=== PATIENT | female | born 1980 | race Caucasian/White ===

== ENCOUNTER 2018-11-05 11:00 | Observation (INO) ==
[2018-11-05 12:05] LABS: Basophils % 0.5 % (0.0-0.8); Eosinophils # 0.2 10*3/uL (0.0-0.87); Eosinophils % 2.9 % (0.00-10.9); Hematocrit 33.1 VOL% (35.7-47.0); Hemoglobin 10.6 GM/DL (12.0-16.0); Immature Granulocytes % 0.3 %; Immature Granulocytes Absolute 0.02 #; Lymphocytes # 3.1 10*3/uL (1.4-4.0); Lymphocytes % 41.3 % (21.3-54.2); Mean Corpuscular Volume 87.6 FL (87-102); Mean Platelet Volume 9.5 FL (9.6-12.0); Monocytes % 10.8 % (1.7-12.7); Neutrophils % 44.2 % (38.7-73.9); Platelet Count 464 T/CUMM (130-400); Red Blood Count 3.78 MC/CUMM (3.8-5.5); Red Cell Distribution Width 17.8 % (9.3-17.3); White Blood Count 7.6 T/CUMM (4-12)
[2018-11-05 12:16] LABS: INR 0.9; PT Patient Result 9.8 SECS; Partial Thromboplastin Time 25.4 SECS (0-40)
[2018-11-05 12:18] LABS: Apearance,Urine Slightly Hazy (Clear); Bilirubin,Urine Negative (Negative); Blood, Urine Negative (Negative); Glucose,Urine (UA) Negative (Negative); Ketones,Urine Negative (Negative); Nitrite,Urine Negative (Negative); Protein,Urine Negative; Urine Color Yellow (Yellow); Urine Urobilinogen < 2.0 EU/DL (0.2-1.0)
[2018-11-05 12:31] LABS: RBC,Urine Rare /HPF (0-4); Squamous Epithelial Cell,Urine Moderate /HPF (0-10); WBC,Urine Rare /HPF (0-6)
[2018-11-05 12:32] LABS: Bacteria,Urine Moderate /HPF (Few)
[2018-11-05 12:33] LABS: Troponin I < 0.015 NG/ML (0.00-0.045)
[2018-11-05 12:35] LABS: Alanine Aminotransferase 17 U/L (13-56); Albumin 3.5 G/DL (3.4-5.0); Alkaline Phosphatase 58 U/L (45-117); Aspartate Amino Transferase 15 U/L (0-37); Bilirubin,Total < 0.39 MG/DL (0.2-1.0); Blood Urea Nitrogen 9 MG/DL (7-18); Calcium 8.9 MG/DL (8.5-10.1); Glucose 95 MG/DL (74-106); Total Protein 6.9 G/DL (6.4-8.3)
[2018-11-05 14:26] LABS: Barbiturates Screen,Urine Negative (Negative); Benzodiazepines Screen,Urine Positive (Negative); Cannabinoid Screen,Urine Positive (Negative); Opiate Screen,Urine Negative (Negative); Phencyclidine Screen,Urine Negative (Negative)
[2018-11-05] MEDS ORDERED: SODIUM CHLORIDE 0.9% 500 ML IV STA (14:44)
[2018-11-05] MEDS ORDERED: ACETAMINOPHEN 325 MG TABLET PO PRN (15:00)
[2018-11-05] MEDS ORDERED: ONDANSETRON 4 MG/2 ML VIAL IV PRN (15:00)
[2018-11-05] MEDS ORDERED: ALUM/MAG/SIMETH/LIDO VISC 1:1 30 ML BOTTLE PO PRN (15:08)
[2018-11-05] MEDS ORDERED: ENOXAPARIN 100 MG/ML SYRINGE SUBCUT SCH (17:00)
[2018-11-05] MEDS: SODIUM CHLORIDE 0.9% 1,000 ML IV SCH (17:07)
[2018-11-05] MEDS ORDERED: SIMVASTATIN 20 MG TABLET PO SCH (21:00)
[2018-11-05] MEDS: CARVEDILOL 6.25 MG TABLET PO SCH (21:27)
[2018-11-05] MEDS: LISINOPRIL 5 MG TABLET PO SCH (21:27)
[2018-11-06] MEDS: SODIUM CHLORIDE 0.9% 1,000 ML IV SCH (03:10)
[2018-11-06 04:31] LABS: Basophils % 0.6 % (0.0-0.8); Eosinophils # 0.2 10*3/uL (0.0-0.87); Hematocrit 29.9 VOL% (35.7-47.0); Hemoglobin 9.6 GM/DL (12.0-16.0); Immature Granulocytes % 0.3 %; Immature Granulocytes Absolute 0.02 #; Lymphocytes # 3.8 10*3/uL (1.4-4.0); Lymphocytes % 52.8 % (21.3-54.2); Mean Corpuscular HGB Conc 32.1 GM/DL (32-36); Mean Corpuscular Volume 86.9 FL (87-102); Mean Platelet Volume 10.2 FL (9.6-12.0); Monocytes % 9.5 % (1.7-12.7); Neutrophils % 33.8 % (38.7-73.9); Platelet Count 445 T/CUMM (130-400); Red Blood Count 3.44 MC/CUMM (3.8-5.5); Red Cell Distribution Width 17.8 % (9.3-17.3); White Blood Count 7.2 T/CUMM (4-12)
[2018-11-06 04:58] LABS: Calcium 8.4 MG/DL (8.5-10.1); Osmolality,Calculated 272.7 MOS/KG (273-304); Risk Ratio 2.95; Thyroid Stimulating Hormone 1.75 uIU/ml (0.358-3.74); VLDL CHOLESTEROL 33.4 MG/DL
[2018-11-06 05:12] LABS: Eosinophils 5 % (0-10); Lymphocytes 53 % (20-55); Platelet Estimate Normal; Polychromasia Few; Segmented Neutrophils 34 % (50-85); Total Cells Counted 100
[2018-11-06] MEDS ORDERED: PANTOPRAZOLE 40 MG TABLET PO SCH (09:00)
[2018-11-06] MEDS ORDERED: Darunavir Ethanolate [Prezista] 800 MG PO SCH (09:00)
[2018-11-06] MEDS ORDERED: ELVITEG COB EMTRI TENOF ALAFEN PO SCH (09:00)
[2018-11-06] MEDS ORDERED: CLOPIDOGREL 75 MG TABLET PO SCH (09:00)
[2018-11-06] MEDS ORDERED: REGADENOSON 0.4 MG/5 ML SYRINGE IV ONE (10:54)
[2018-11-06] MEDS: LISINOPRIL 5 MG TABLET PO SCH (12:00)
[2018-11-06] MEDS: CARVEDILOL 6.25 MG TABLET PO SCH (12:00)
[2018-11-06 15:25] VITALS: BP 81/50
[2018-11-07] MEDS ORDERED: ASPIRIN EC 81 MG TABLET PO SCH (09:00)
== END 2018-11-06 17:48 | disposition home or self-care (01) ==
LOC: N.ED 11:00 → N.EDINP 11:00 → N.TELES 16:25
PROVIDERS: ADMIT Internal Medicine; ATTEND Internal Medicine

== ENCOUNTER 2019-10-11 10:43 | Inpatient (IN) ==
[2019-10-11 11:21] LABS: Basophils % 0.5 % (0.0-0.8); Eosinophils # 0.2 10*3/uL (0.0-0.87); Eosinophils % 1.9 % (0.00-10.9); Hematocrit 26.7 VOL% (35.7-47.0); Hemoglobin 8.6 GM/DL (12.0-16.0); Immature Granulocytes % 0.4 %; Immature Granulocytes Absolute 0.03 #; Lymphocytes # 2.7 10*3/uL (1.4-4.0); Lymphocytes % 32.5 % (21.3-54.2); Mean Corpuscular HGB Conc 32.2 GM/DL (32-36); Mean Corpuscular Volume 86.7 FL (87-102); Mean Platelet Volume 9.6 FL (9.6-12.0); Monocytes % 9.7 % (1.7-12.7); NRBC # 0.04 10*3/uL; Platelet Count 326 T/CUMM (130-400); Red Blood Count 3.08 MC/CUMM (3.8-5.5); Red Cell Distribution Width 16.9 % (9.3-17.3); White Blood Count 8.4 T/CUMM (4-12)
[2019-10-11] MEDS ORDERED: ACETAMINOPHEN 500 MG TABLET PO STA (11:40)
[2019-10-11 11:45] LABS: Albumin 3.2 G/DL (3.4-5.0); Bilirubin,Total 0.5 MG/DL (0.2-1.0); Calcium 8.4 MG/DL (8.5-10.1); Osmolality,Calculated 276.5 MOS/KG (273-304); Total Protein 6.8 G/DL (6.4-8.3)
[2019-10-11] MEDS ORDERED: cefTRIAXone 1,000 MG in SODIUM CHLORIDE 0.9% 100 ML IV STA (12:12)
[2019-10-11 12:17] LABS: PT Patient Result 10.5 SECS (9.8-11.9)
[2019-10-11 12:23] LABS: Ferritin 23.9 ng/ml (8-252)
[2019-10-11] MEDS ORDERED: GLUCAGON 1 MG VIAL IM PRN (14:42)
[2019-10-11] MEDS ORDERED: DEXTROSE 10% 250 ML BAG IV PRN (14:42)
[2019-10-11] MEDS ORDERED: ONDANSETRON 4 MG/2 ML VIAL IV PRN (14:42)
[2019-10-11] MEDS ORDERED: AZITHROMYCIN INJ 500 MG in SODIUM CHLORIDE 0.9% 250 ML IV SCH (15:30)
[2019-10-11] MEDS ORDERED: FUROSEMIDE 40 MG/4 ML VIAL IV ONE (15:56)
[2019-10-11] MEDS ORDERED: ARIPIPRAZOLE 400 MG IM SCH (20:30)
[2019-10-11] MEDS ORDERED: HYDROXYCHLOROQUINE 200 MG TABLET PO SCH (21:00)
[2019-10-11] MEDS ORDERED: traZODone 50 MG TABLET PO SCH (21:00)
[2019-10-11] MEDS ORDERED: SIMVASTATIN 20 MG TABLET PO SCH (21:00)
[2019-10-11] MEDS: ACETAMINOPHEN 325 MG TABLET PO PRN (21:40)
[2019-10-11] MEDS: carvediloL 6.25 MG TABLET PO SCH (22:46)
[2019-10-11] MEDS: GABAPENTIN 600 MG TABLET PO SCH (22:46)
[2019-10-12 06:32] LABS: Basophils % 0.3 % (0.0-0.8); Eosinophils # 0.1 10*3/uL (0.0-0.87); Eosinophils % 0.9 % (0.00-10.9); Hematocrit 25.5 VOL% (35.7-47.0); Hemoglobin 8.2 GM/DL (12.0-16.0); Immature Granulocytes % 0.3 %; Immature Granulocytes Absolute 0.04 #; Lymphocytes # 3.5 10*3/uL (1.4-4.0); Lymphocytes % 28.7 % (21.3-54.2); Mean Corpuscular HGB Conc 32.2 GM/DL (32-36); Mean Corpuscular Volume 87.9 FL (87-102); Mean Platelet Volume 9.9 FL (9.6-12.0); Monocytes % 6.5 % (1.7-12.7); NRBC # 0.05 10*3/uL; Neutrophils % 63.3 % (38.7-73.9); Platelet Count 320 T/CUMM (130-400); Red Cell Distribution Width 16.8 % (9.3-17.3); White Blood Count 12.1 T/CUMM (4-12)
[2019-10-12 06:56] LABS: Albumin 2.9 G/DL (3.4-5.0); Bilirubin,Total 0.5 MG/DL (0.2-1.0); Calcium 8.5 MG/DL (8.5-10.1); Osmolality,Calculated 274.7 MOS/KG (273-304); Risk Ratio 2.62; Thyroid Stimulating Hormone 2.78 uIU/ml (0.358-3.74); VLDL CHOLESTEROL 14.4 MG/DL
[2019-10-12] MEDS ORDERED: MAGNESIUM SULF RIDER 2 GM in PREMIX 1 EACH IV PRN (07:52)
[2019-10-12] MEDS ORDERED: MAGNESIUM SULF RIDER 4 GM in PREMIX 1 EACH IV PRN (07:52)
[2019-10-12] MEDS ORDERED: ELVITEG COB EMTRI TENOF ALAFEN PO SCH (09:00)
[2019-10-12] MEDS ORDERED: Darunavir Ethanolate [Prezista] 800 MG PO SCH (09:00)
[2019-10-12] MEDS: carvediloL 6.25 MG TABLET PO SCH ×2 (09:13→16:11)
[2019-10-12] MEDS: ENOXAPARIN 40 MG/0.4 ML SYRINGE SUBCUT SCH (09:13)
[2019-10-12] MEDS: CLOPIDOGREL 75 MG TABLET PO SCH (09:13)
[2019-10-12] MEDS: NICOTINE 21 MG/24 HR PATCH TRANSDERM SCH (09:13)
[2019-10-12] MEDS: PANTOPRAZOLE 40 MG TABLET PO SCH (09:14)
[2019-10-12] MEDS: GABAPENTIN 600 MG TABLET PO SCH ×2 (09:14→14:28)
[2019-10-12] MEDS: cefTRIAXone 1,000 MG in SYRINGE 1 EACH IV SCH (09:31)
[2019-10-12 11:02] LABS: Barbiturates Screen,Urine Negative (Negative); Benzodiazepines Screen,Urine Positive (Negative); Cannabinoid Screen,Urine Positive (Negative); Opiate Screen,Urine Negative (Negative); Phencyclidine Screen,Urine Negative (Negative)
[2019-10-12] MEDS: ASPIRIN EC 81 MG TABLET PO SCH (14:28)
[2019-10-12] MEDS: FUROSEMIDE 40 MG/4 ML VIAL IV SCH (16:10)
[2019-10-12] MEDS ORDERED: HYDROXYCHLOROQUINE 200 MG TABLET PO SCH (21:00)
[2019-10-12] MEDS: AZITHROMYCIN 250 MG TABLET PO SCH (21:07)
[2019-10-12] MEDS: risperiDONE 1 MG TABLET PO SCH (21:12)
[2019-10-12] MEDS: PRAVASTATIN 20 MG TABLET PO SCH (21:12)
[2019-10-12] MEDS: lisinopriL 5 MG TABLET PO SCH (21:12)
[2019-10-12] MEDS: AMANTADINE 100 MG CAPSULE PO SCH (21:12)
[2019-10-12] MEDS: GABAPENTIN 400 MG CAPSULE PO SCH (21:12)
[2019-10-13 05:52] LABS: Basophils % 0.3 % (0.0-0.8); Eosinophils # 0.2 10*3/uL (0.0-0.87); Eosinophils % 1.3 % (0.00-10.9); Hematocrit 25.1 VOL% (35.7-47.0); Hemoglobin 7.9 GM/DL (12.0-16.0); Immature Granulocytes % 0.6 %; Immature Granulocytes Absolute 0.07 #; Lymphocytes # 3.1 10*3/uL (1.4-4.0); Lymphocytes % 25.7 % (21.3-54.2); Mean Corpuscular HGB Conc 31.5 GM/DL (32-36); Mean Corpuscular Volume 88.1 FL (87-102); Mean Platelet Volume 9.9 FL (9.6-12.0); Monocytes % 8.8 % (1.7-12.7); NRBC # 0.08 10*3/uL; Neutrophils % 63.3 % (38.7-73.9); Platelet Count 297 T/CUMM (130-400); Red Blood Count 2.85 MC/CUMM (3.8-5.5); Red Cell Distribution Width 16.9 % (9.3-17.3)
[2019-10-13 06:13] LABS: Albumin 2.8 G/DL (3.4-5.0); Calcium 8.5 MG/DL (8.5-10.1); Osmolality,Calculated 269.1 MOS/KG (273-304); Total Protein 7.2 G/DL (6.4-8.3)
[2019-10-13] MEDS: ENOXAPARIN 40 MG/0.4 ML SYRINGE SUBCUT SCH (09:36)
[2019-10-13] MEDS: cefTRIAXone 1,000 MG in SYRINGE 1 EACH IV SCH (09:36)
[2019-10-13] MEDS: risperiDONE 1 MG TABLET PO SCH ×2 (09:36→21:43)
[2019-10-13] MEDS: NICOTINE 21 MG/24 HR PATCH TRANSDERM SCH (09:36)
[2019-10-13] MEDS: lisinopriL 5 MG TABLET PO SCH ×2 (09:37→21:43)
[2019-10-13] MEDS: CLOPIDOGREL 75 MG TABLET PO SCH (09:38)
[2019-10-13] MEDS: GABAPENTIN 400 MG CAPSULE PO SCH ×3 (09:38→21:43)
[2019-10-13] MEDS: PANTOPRAZOLE 40 MG TABLET PO SCH (09:39)
[2019-10-13] MEDS: carvediloL 6.25 MG TABLET PO SCH ×2 (09:39→16:45)
[2019-10-13] MEDS: ISOSORBIDE MONONITRATE 30 MG TABLET PO SCH (09:39)
[2019-10-13] MEDS: ACETAMINOPHEN 325 MG TABLET PO PRN (09:41)
[2019-10-13] MEDS: ASPIRIN EC 81 MG TABLET PO SCH (09:41)
[2019-10-13] MEDS: FUROSEMIDE 40 MG/4 ML VIAL IV SCH (10:24)
[2019-10-13] MEDS: AMANTADINE 100 MG CAPSULE PO SCH ×2 (11:31→21:43)
[2019-10-13] MEDS: FUROSEMIDE 40 MG TABLET PO SCH (16:45)
[2019-10-13] MEDS: AZITHROMYCIN 250 MG TABLET PO SCH (18:02)
[2019-10-13] MEDS: PRAVASTATIN 20 MG TABLET PO SCH (21:43)
[2019-10-14 05:57] LABS: Basophils % 0.3 % (0.0-0.8); Eosinophils # 0.2 10*3/uL (0.0-0.87); Hematocrit 24.6 VOL% (35.7-47.0); Hemoglobin 7.9 GM/DL (12.0-16.0); Immature Granulocytes % 0.5 %; Immature Granulocytes Absolute 0.05 #; Lymphocytes # 3.1 10*3/uL (1.4-4.0); Lymphocytes % 28.4 % (21.3-54.2); Mean Corpuscular HGB Conc 32.1 GM/DL (32-36); Mean Corpuscular Volume 87.5 FL (87-102); Mean Platelet Volume 10.2 FL (9.6-12.0); Monocytes % 8.6 % (1.7-12.7); NRBC # 0.08 10*3/uL; Neutrophils % 60.2 % (38.7-73.9); Platelet Count 301 T/CUMM (130-400); Red Blood Count 2.81 MC/CUMM (3.8-5.5); Red Cell Distribution Width 16.7 % (9.3-17.3); White Blood Count 10.8 T/CUMM (4-12)
[2019-10-14] MEDS: ACETAMINOPHEN 325 MG TABLET PO PRN (05:59)
[2019-10-14 06:20] LABS: Albumin 2.8 G/DL (3.4-5.0); Bilirubin,Total 0.4 MG/DL (0.2-1.0); Calcium 8.5 MG/DL (8.5-10.1); Osmolality,Calculated 268.2 MOS/KG (273-304); Total Protein 7.4 G/DL (6.4-8.3)
[2019-10-14 06:22] LABS: Eosinophils 2 % (0-10); Hypochromasia 1+; Lymphocytes 28 % (20-55); Platelet Estimate Adequate; Segmented Neutrophils 55 % (50-85); Total Cells Counted 100
[2019-10-14] MEDS ORDERED: carvediloL 6.25 MG TABLET PO SCH (08:12)
[2019-10-14] MEDS: ISOSORBIDE MONONITRATE 30 MG TABLET PO SCH (10:53)
[2019-10-14] MEDS: GABAPENTIN 400 MG CAPSULE PO SCH ×2 (10:54→16:07)
[2019-10-14] MEDS: NICOTINE 21 MG/24 HR PATCH TRANSDERM SCH (10:55)
[2019-10-14] MEDS: lisinopriL 5 MG TABLET PO SCH (10:55)
[2019-10-14] MEDS: CLOPIDOGREL 75 MG TABLET PO SCH (10:55)
[2019-10-14] MEDS: cefTRIAXone 1,000 MG in SYRINGE 1 EACH IV SCH (10:55)
[2019-10-14] MEDS: AMANTADINE 100 MG CAPSULE PO SCH (10:55)
[2019-10-14] MEDS: risperiDONE 1 MG TABLET PO SCH (10:55)
[2019-10-14] MEDS: PANTOPRAZOLE 40 MG TABLET PO SCH (10:55)
[2019-10-14] MEDS: FUROSEMIDE 40 MG TABLET PO SCH (10:58)
[2019-10-14] MEDS: carvediloL 6.25 MG TABLET PO SCH (10:58)
[2019-10-14] MEDS: ENOXAPARIN 40 MG/0.4 ML SYRINGE SUBCUT SCH (13:30)
[2019-10-14 17:40] VITALS: BP 116/60
[2019-10-15] MEDS ORDERED: FUROSEMIDE 40 MG TABLET PO SCH (09:00)
== END 2019-10-14 17:30 | disposition home or self-care (01) | DRG 974 ==
LOC: EDUNIT# → EDBD → N.ED 10:43 → SUATTDRO 14:36 → N.EDINP 14:36 → N.2E 18:32
PROVIDERS: ADMIT Internal Medicine; ATTEND Family Medicine

== ENCOUNTER 2020-02-20 11:03 | Inpatient (IN) ==
[2020-02-20 12:26] LABS: Basophils % 0.5 % (0.0-0.8); Eosinophils # 0.3 10*3/uL (0.0-0.87); Eosinophils % 3.5 % (0.00-10.9); Hematocrit 24.2 VOL% (35.7-47.0); Hemoglobin 7.8 GM/DL (12.0-16.0); Immature Granulocytes % 0.3 %; Immature Granulocytes Absolute 0.02 #; Lymphocytes % 39.7 % (21.3-54.2); Mean Corpuscular HGB Conc 32.2 GM/DL (32-36); Mean Corpuscular Volume 102.5 FL (87-102); Mean Platelet Volume 10.9 FL (9.6-12.0); Monocytes % 10.6 % (1.7-12.7); Neutrophils % 45.4 % (38.7-73.9); Platelet Count 275 T/CUMM (130-400); Red Blood Count 2.36 MC/CUMM (3.8-5.5); Red Cell Distribution Width 17.2 % (9.3-17.3); White Blood Count 7.6 T/CUMM (4-12)
[2020-02-20 12:29] LABS: PT Patient Result 10.9 SECS (9.8-11.9)
[2020-02-20 12:33] LABS: Albumin 3.5 G/DL (3.4-5.0); Bilirubin,Total 0.6 MG/DL (0.2-1.0); Calcium 8.8 MG/DL (8.5-10.1); Osmolality,Calculated 285.4 MOS/KG (273-304); Total Protein 7.1 G/DL (6.4-8.3)
[2020-02-20 12:35] LABS: Ferritin 25.2 ng/ml (8-252)
[2020-02-20] MEDS ORDERED: FUROSEMIDE 100 MG/10 ML VIAL IV STA (12:37)
[2020-02-20] MEDS ORDERED: cefTRIAXone 1,000 MG in SODIUM CHLORIDE 0.9% 100 ML IV STA (12:37)
[2020-02-20 12:43] LABS: Anisocytosis 1+; Eosinophils 7 % (0-10); Lymphocytes 40 % (20-55); Macrocytosis 1+; Platelet Estimate Normal; Segmented Neutrophils 45 % (50-85); Total Cells Counted 100
[2020-02-20 13:42] LABS: Barbiturates Screen,Urine Negative (Negative); Benzodiazepines Screen,Urine Positive (Negative); Cannabinoid Screen,Urine Positive (Negative); Opiate Screen,Urine Negative (Negative); Phencyclidine Screen,Urine Negative (Negative)
[2020-02-20] MEDS ORDERED: CALCIUM CARBONATE CHEW 500 MG TABLET PO PRN (15:16)
[2020-02-20] MEDS ORDERED: ONDANSETRON 4 MG/2 ML VIAL IV PRN (15:16)
[2020-02-20] MEDS ORDERED: ALBUTEROL 2.5 MG/3 ML NEB RESP TX PRN (15:16)
[2020-02-20] MEDS: DOPamine 800 MG/250 ML PREMIX IV PRN ×2 (16:30→17:31)
[2020-02-20] MEDS: PANTOPRAZOLE 40 MG TABLET PO SCH (16:45)
[2020-02-20] MEDS ORDERED: DOBUTamine 500 MG/250 ML PREMIX IV PRN (18:03)
[2020-02-20] MEDS: GABAPENTIN 400 MG CAPSULE PO SCH (21:07)
[2020-02-20] MEDS: risperiDONE 1 MG TABLET PO SCH (21:07)
[2020-02-20] MEDS: ENOXAPARIN 30 MG/0.3 ML SYRINGE SUBCUT SCH (21:07)
[2020-02-21] MEDS: DOPamine 800 MG/250 ML PREMIX IV PRN ×3 (00:55→15:36)
[2020-02-21 04:55] LABS: ABG Base Excess -7.4 MMOL/L (-2.5-2.5); ABG HCO3 18.3 MMOL/L (20-26); ABG Oxygen Saturation 92.5 % (95-100); ABG PCO2 32.4 MM HG (35-48); ABG PH 7.342 (7.35-7.45); ABG PO2 67.6 MM HG (80-95); ABG TCO2 16.4 MMOL/L (23-27)
[2020-02-21] MEDS: ACETAMINOPHEN 325 MG TABLET PO PRN ×3 (05:00→20:43)
[2020-02-21 05:18] LABS: Basophils % 0.3 % (0.0-0.8); Eosinophils # 0.2 10*3/uL (0.0-0.87); Eosinophils % 1.5 % (0.00-10.9); Hematocrit 24.4 VOL% (35.7-47.0); Hemoglobin 8.1 GM/DL (12.0-16.0); Immature Granulocytes % 0.5 %; Immature Granulocytes Absolute 0.06 #; Lymphocytes # 1.8 10*3/uL (1.4-4.0); Lymphocytes % 16.4 % (21.3-54.2); Mean Corpuscular HGB Conc 33.2 GM/DL (32-36); Mean Corpuscular Volume 100.4 FL (87-102); Monocytes % 10.8 % (1.7-12.7); NRBC # 0.02 10*3/uL; Neutrophils % 70.5 % (38.7-73.9); Platelet Count 258 T/CUMM (130-400); Red Blood Count 2.43 MC/CUMM (3.8-5.5); Red Cell Distribution Width 15.9 % (9.3-17.3)
[2020-02-21 05:28] LABS: Calcium 8.5 MG/DL (8.5-10.1); Osmolality,Calculated 286.7 MOS/KG (273-304)
[2020-02-21 05:31] LABS: Troponin I 0.058 NG/ML (0.00-0.045)
[2020-02-21] MEDS ORDERED: Darunavir Ethanolate [Prezista] 800 MG PO SCH (09:00)
[2020-02-21] MEDS ORDERED: ELVITEG COB EMTRI TENOF ALAFEN PO SCH (09:00)
[2020-02-21] MEDS: PANTOPRAZOLE 40 MG TABLET PO SCH (09:27)
[2020-02-21] MEDS: GABAPENTIN 400 MG CAPSULE PO SCH ×3 (09:28→20:38)
[2020-02-21] MEDS: CLOPIDOGREL 75 MG TABLET PO SCH (09:28)
[2020-02-21] MEDS: risperiDONE 1 MG TABLET PO SCH ×2 (09:28→20:42)
[2020-02-21] MEDS: ENOXAPARIN 30 MG/0.3 ML SYRINGE SUBCUT SCH (20:36)
[2020-02-22] MEDS: DOPamine 800 MG/250 ML PREMIX IV PRN (00:15)
[2020-02-22 05:37] LABS: Basophils % 0.4 % (0.0-0.8); Eosinophils # 0.3 10*3/uL (0.0-0.87); Eosinophils % 3.3 % (0.00-10.9); Hematocrit 24.1 VOL% (35.7-47.0); Hemoglobin 7.9 GM/DL (12.0-16.0); Immature Granulocytes % 0.4 %; Immature Granulocytes Absolute 0.04 #; Lymphocytes # 1.9 10*3/uL (1.4-4.0); Lymphocytes % 18.9 % (21.3-54.2); Mean Corpuscular HGB Conc 32.8 GM/DL (32-36); Mean Corpuscular Volume 102.6 FL (87-102); Mean Platelet Volume 10.5 FL (9.6-12.0); Monocytes % 7.7 % (1.7-12.7); NRBC # 0.03 10*3/uL; Neutrophils % 69.3 % (38.7-73.9); Platelet Count 237 T/CUMM (130-400); Red Blood Count 2.35 MC/CUMM (3.8-5.5); Red Cell Distribution Width 16.2 % (9.3-17.3); White Blood Count 9.9 T/CUMM (4-12)
[2020-02-22 05:57] LABS: Calcium 8.2 MG/DL (8.5-10.1); Osmolality,Calculated 284.5 MOS/KG (273-304)
[2020-02-22] MEDS: CLOPIDOGREL 75 MG TABLET PO SCH (08:11)
[2020-02-22] MEDS: PANTOPRAZOLE 40 MG TABLET PO SCH (08:11)
[2020-02-22] MEDS: risperiDONE 1 MG TABLET PO SCH ×2 (08:11→20:55)
[2020-02-22] MEDS: GABAPENTIN 400 MG CAPSULE PO SCH ×3 (08:11→20:55)
[2020-02-22] MEDS: FUROSEMIDE 40 MG TABLET PO SCH (09:37)
[2020-02-22] MEDS: ACETAMINOPHEN 325 MG TABLET PO PRN (09:37)
[2020-02-22] MEDS ORDERED: DOPamine 800 MG/250 ML PREMIX IV ONE (13:21)
[2020-02-22] MEDS: SIMVASTATIN 20 MG TABLET PO SCH (20:55)
[2020-02-22] MEDS: ENOXAPARIN 30 MG/0.3 ML SYRINGE SUBCUT SCH (20:55)
[2020-02-23 06:02] LABS: Basophils % 0.2 % (0.0-0.8); Eosinophils # 0.3 10*3/uL (0.0-0.87); Eosinophils % 3.2 % (0.00-10.9); Hematocrit 24.7 VOL% (35.7-47.0); Hemoglobin 8.4 GM/DL (12.0-16.0); Immature Granulocytes % 0.2 %; Immature Granulocytes Absolute 0.02 #; Lymphocytes # 1.8 10*3/uL (1.4-4.0); Lymphocytes % 20.3 % (21.3-54.2); Mean Corpuscular Volume 99.2 FL (87-102); Mean Platelet Volume 10.9 FL (9.6-12.0); Monocytes % 8.1 % (1.7-12.7); NRBC # 0.04 10*3/uL; Platelet Count 247 T/CUMM (130-400); Red Blood Count 2.49 MC/CUMM (3.8-5.5); Red Cell Distribution Width 16.6 % (9.3-17.3); White Blood Count 8.6 T/CUMM (4-12)
[2020-02-23 06:16] LABS: Calcium 8.3 MG/DL (8.5-10.1); Osmolality,Calculated 283.5 MOS/KG (273-304)
[2020-02-23] MEDS: PANTOPRAZOLE 40 MG TABLET PO SCH (08:50)
[2020-02-23] MEDS: CLOPIDOGREL 75 MG TABLET PO SCH (08:50)
[2020-02-23] MEDS: GABAPENTIN 400 MG CAPSULE PO SCH ×3 (08:50→21:23)
[2020-02-23] MEDS: FUROSEMIDE 40 MG TABLET PO SCH (08:51)
[2020-02-23] MEDS: risperiDONE 1 MG TABLET PO SCH ×2 (08:51→21:23)
[2020-02-23 11:41] LABS: % Iron Saturation 3.3 % (18-50); Ferritin 89.2 ng/ml (8-252)
[2020-02-23 12:06] LABS: Folate 9.7 NG/ML (5.4-24.0)
[2020-02-23] MEDS: OFLOXACIN 0.3% LEFT EAR SCH ×2 (15:59→21:26)
[2020-02-23] MEDS: ACETAMINOPHEN 325 MG TABLET PO PRN (21:23)
[2020-02-23] MEDS: SIMVASTATIN 20 MG TABLET PO SCH (21:23)
[2020-02-23] MEDS: ENOXAPARIN 30 MG/0.3 ML SYRINGE SUBCUT SCH (21:24)
[2020-02-24] MEDS: OFLOXACIN 0.3% LEFT EAR SCH ×2 (04:01→09:05)
[2020-02-24 04:55] LABS: Basophils % 0.3 % (0.0-0.8); Eosinophils # 0.5 10*3/uL (0.0-0.87); Eosinophils % 6.6 % (0.00-10.9); Hemoglobin 7.7 GM/DL (12.0-16.0); Immature Granulocytes % 0.4 %; Immature Granulocytes Absolute 0.03 #; Lymphocytes # 2.5 10*3/uL (1.4-4.0); Lymphocytes % 34.3 % (21.3-54.2); Mean Corpuscular HGB Conc 33.5 GM/DL (32-36); Mean Corpuscular Volume 99.6 FL (87-102); Mean Platelet Volume 10.9 FL (9.6-12.0); Monocytes % 11.9 % (1.7-12.7); NRBC # 0.02 10*3/uL; Neutrophils % 46.5 % (38.7-73.9); Platelet Count 283 T/CUMM (130-400); Red Blood Count 2.31 MC/CUMM (3.8-5.5); Red Cell Distribution Width 16.5 % (9.3-17.3); White Blood Count 7.2 T/CUMM (4-12)
[2020-02-24 05:29] LABS: Hypochromasia 1+; Microcytosis 1+
[2020-02-24 05:30] LABS: Platelet Estimate Normal; Polychromasia Few; Target Cells Few
[2020-02-24 05:38] LABS: Calcium 8.6 MG/DL (8.5-10.1); Osmolality,Calculated 280.5 MOS/KG (273-304)
[2020-02-24] MEDS: ACETAMINOPHEN 325 MG TABLET PO PRN (07:30)
[2020-02-24] MEDS ORDERED: POTASSIUM CHLORIDE 20 MEQ TABLET PO ONE (09:03)
[2020-02-24] MEDS: CLOPIDOGREL 75 MG TABLET PO SCH (09:05)
[2020-02-24] MEDS: GABAPENTIN 400 MG CAPSULE PO SCH (09:05)
[2020-02-24] MEDS: risperiDONE 1 MG TABLET PO SCH (09:05)
[2020-02-24] MEDS: PANTOPRAZOLE 40 MG TABLET PO SCH (09:05)
[2020-02-24] MEDS: FUROSEMIDE 40 MG TABLET PO SCH (09:05)
[2020-02-24] MEDS ORDERED: CYANOCOBALAMIN 1000 MCG/1 ML VIAL SUBCUT SCH (09:30)
[2020-02-24] MEDS ORDERED: FERRIC GLUCONATE COMPLEX 125 MG in SODIUM CHLORIDE 0.9% 100 ML IV SCH (09:30)
[2020-02-24 11:53] VITALS: BP 101/63
== END 2020-02-24 14:02 | disposition home or self-care (01) | DRG 291 ==
LOC: N.ED 11:03 → N.EDINP 15:24 → SUATTDRO 15:24 → SUPCPDRO 15:24 → N.ICU 21:17 → N.TELEN 02-22 15:08
PROVIDERS: ADMIT Internal Medicine; ATTEND Internal Medicine